=== PATIENT | female | born 1980 | race Caucasian/White ===

== ENCOUNTER 2019-09-28 | Emergency (ER) | payer SELFPAY ==
[2019-09-28] MEDS ORDERED: MEDDOSEPAK PO (10:26)
[2019-09-28] MEDS ORDERED: FLEXERIL PO (10:26)
[2019-09-28] MEDS ORDERED: HYDROCO/APAP1 TA9 PO (10:26)
== END 2019-09-28 10:45 | disposition home or self-care (01) | DRG 563 ==
DX: S39.012A Strain of muscle, fascia and tendon of lower back, initial encounter (principal); M54.41 Lumbago with sciatica, right side; X50.0XXA Overexertion from strenuous movement or load, initial encounter; Y93.89 Activity, other specified